=== PATIENT | male | born 1990 | race Caucasian/White ===

== ENCOUNTER 2020-03-03 19:27 | Emergency (ER) | payer OTHER, SELFPAY ==
--- NOTE | 2020-03-03 19:39 | ED.EYEPROB ---
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 He states that he was cleaning out his garage earlier today when he felt a piece of ?dust? fall into his and he has felt irritated ever since. He denies any high-speed projectile metal grinding or other. As stated, his tetanus is up-to-date. He does not wear corrective lenses. He complains of foreign body sensation and some watering. MD chief complaint: eye pain and eye injury Onset (ago): hour(s) Onset description: sudden Duration: constant Location: right eye Eye Symptoms: redness and foreign body sensation Place: home Mechanism: direct trauma Severity: mild If Pain, Quality: burning Associated symptoms: none Treatments Prior to Arrival: irrigated eye Related Data Patient tetanus UTD: Yes Review of Systems Constitutional Constitutional: Denies chills, Denies fatigue, Denies fever(s), Denies frequent falls, Denies lethargy and Denies weakness Eyes Eyes: Reports system reviewed and no additional complaints, except as documented, Denies change in vision, Denies eye discharge, Denies irritation and Denies loss of vision ENT Ears, Nose, Mouth, and Throat: Denies change in voice, Denies dizziness, Denies neck pain, Denies sore throat and Denies throat swelling Cardiovascular Cardiovascular: Denies chest pain, Denies irregular heart rhythm, Denies lightheadedness, Denies palpitations, Denies dyspnea, Denies dyspnea on exertion and Denies orthopnea Respiratory Respiratory: Denies cough, Denies dyspnea, Denies dyspnea on exertion and Denies wheezing Gastrointestinal Gastrointestinal: Denies abdominal pain, Denies change in bowel habits, Denies diarrhea, Denies nausea and Denies vomiting Musculoskeletal Musculoskeletal: Denies neck pain and Denies numbness Integumentary/Breasts Skin/Breast: Denies pruritus, Denies erythema, Denies rash and Denies wounds Neurologic Neurologic: Denies behavioral changes, Denies confusion, Denies dizziness, Denies frequent falls, Denies loss of vision, Denies numbness and Denies weakness Psychiatric Psychiatric: Denies anxiety, Denies behavioral changes, Denies confusion, Denies depression, Denies homicidal ideation and Denies suicidal ideation Endocrine Endocrine: Denies fatigue, Denies flushing and Denies palpitations Hematologic/Lymphatic Hematologic/Lymphatic: Denies easy bruising Allergic/Immunologic Allergic/Immunologic: Denies urticaria, Denies throat swelling and Denies wheezing Patient History Social History Smoking Status: Never smoker Smoking Status: Never smoker alcohol intake frequency: 0-2 drinks per day Substance Use Type: does not use Exam Narrative Exam Narrative: GEN: AOx3 and in mild distress EYES: Small FB noted at 4 o'clock position. Discomfort greatly reduced with use of proparacaine. Unable to swep out with sterile qtip. Attempt with blunt needle and then TB needle, and finally Mcrae without success. Metallic foreign body felt with needle, but unable to get it out. Fluorosceine Pupils are equal, round, and reactive to light and accommodation. Extraoccular muscles are intact bilaterally. CHEST: Lungs are clear to auscultation bilaterally and free of wheezes, rales, or rhonchi. Heart rate is regular rhythm, there are no murmurs, clicks, rubs, or gallops. There is no chest wall tenderness. ABD: Abdomen is soft and nontender. There is no guarding or rebound. Bowel sounds are normal in all 4 quadrants. There is no mass or organomegaly. EXT: Full painless ROM of all extremities with no loss of sensation or strength. SKIN: Warm, pink, and dry. No erythema or rash Initial Vital Signs Initial Vital Signs: Vital Signs Temperature 98.4 F 03/03/20 19:45 Pulse Rate 81 03/03/20 19:45 Respiratory Rate 16 03/03/20 19:45 Blood Pressure 141/80 H 03/03/20 19:45 Pulse Oximetry 100 03/03/20 19:45 Course Orders Ordered: Discontinued Medications Erythromycin (Erythromycin Ophth Oint) 1 applic EYE-RIGHT NOW ONE Stop: 03/03/20 21:07 Last Admin: 03/03/20 21:14 Dose: 1 applic Documented by: YANG Fluorescein Sodium (Ful-Malia) 1 mg EYE-RIGHT NOW ONE Stop: 03/03/20 20:09 Last Admin: 03/03/20 20:22 Dose: 1 mg Documented by: YANG Proparacaine HCl (Parcaine 0.5% Ophth Arlette) 1 drops EYE-RIGHT NOW ONE Stop: 03/03/20 20:09 Last Admin: 03/03/20 20:22 Dose: 1 drop Documented by: YANG Discharge Plan Departure Patient Disposition: Home Clinical Impression: Corneal abrasion Qualifiers: Encounter type: initial encounter Laterality: right Qualified Code(s): S05.01XA - Injury of conjunctiva and corneal abrasion without foreign body, right eye, initial encounter Acute foreign body of right cornea Qualifiers: Encounter type: initial encounter Qualified Code(s): T15.01XA - Foreign body in cornea, right eye, initial encounter Discharge Date/Time: 03/03/20 21:30 Instructions: DI for Corneal Foreign Body-Eye Activity Restrictions/Additional Instructions: *You have been diagnosed with [retained corneal foreign body with abrasion] *What to do: *Take medications as directed *Follow up with the book jacket cover machine operator office here at [facility] tomorrow, please show up at 0830 and let them know you were seen in the Emergency Department and we need you to be seen urgently. *Return to ER if you should have any new, worsening or concerning symptoms Referrals: Herve Nguyen MD [Physician] -
[2020-03-03 19:45] VITALS: BP 141/80; PULSE 81; RESP 16; TEMP 36.9; O2SAT 100; BMI 23.7
[2020-03-03] MEDS: FLUORESCEIN 1 MG STRIP EYE-RIGHT (20:22)
[2020-03-03] MEDS: PROPARACAINE 0.5% OPHTH SOL 1 DROPS EYE-RIGHT (20:22)
[2020-03-03] MEDS: ERYTHROMYCIN OPHTH 1 GM OINT 1 APPLIC EYE-RIGHT (21:14)
== END 2020-03-03 21:30 | disposition home or self-care (01) ==
PROVIDERS: Emergency Provider Emergency Medicine
DX: T15.01XA Foreign body in cornea, right eye, initial encounter (principal)
CPT/HCPCS: 99282